=== PATIENT | female | born 1990 | race African-American/Black ===

== ENCOUNTER 2020-05-12 19:29 | Emergency (ER) | payer OTHER ==
[~2020-05-12] VITALS: Ht 170.2 cm; Wt 127.0 kg
[2020-05-12 20:06] LABS: URINE BILIRUBIN NEGATIVE (Negative); URINE BLOOD NEGATIVE (Negative); URINE CLARITY CLEAR; URINE COLOR YELLOW; URINE GLUCOSE-RANDOM* NEGATIVE (Negative); URINE KETONES NEGATIVE (Negative); URINE LEUKOCYTES-REFLEX NEGATIVE (Negative); URINE NITRITE-REFLEX NEGATIVE (Negative); URINE PROTEIN (DIPSTICK) NEGATIVE (Negative); URINE UROBILINOGEN 0.2 E.U./dl (0.2-1.0)
[2020-05-12 20:35] LABS: ABSOLUTE NEUTROPHILS 10.2 thou/uL (1.4-8.2); EOSINOPHILS 1.4 % (0.0-3.0); HEMATOCRIT 37.4 % (37.0-47.0); HEMOGLOBIN 12.2 gm/dL (12.0-15.0); LYMPHOCYTES 14.2 % (24.0-44.0); MCH 26.6 pg (26.0-34.0); MCHC 32.6 g/dL (28.0-37.0); MCV 81.7 fL (80.0-100.0); MONOCYTES 4.9 % (1.0-8.0); PLATELET COUNT 335 thou/uL (150-400); POLYS 78.5 % (36.0-66.0); RBC 4.57 mil/uL (4.20-5.00); RDW 16.2 % (10.5-14.5)
[2020-05-12 20:43] LABS: CALCIUM 8.5 mg/dL (8.5-10.1); CREATININE 0.8 mg/dL (0.6-1.0); POTASSIUM 3.3 mmol/L (3.5-5.1)
[2020-05-12 20:48] LABS: ALBUMIN 3.4 g/dL (3.4-5.0); TOTAL BILIRUBIN 0.2 mg/dL (0.2-1.0); TOTAL PROTEIN 7.6 g/dL (6.4-8.2)
[2020-05-12] MEDS ORDERED: NORCO 5-325 TA1 EAC2 PO (21:44)
[2020-05-12 21:58] VITALS: BP 108/70
== END 2020-05-12 22:03 | disposition home or self-care (01) ==
LOC: ER 19:29
PROVIDERS: Physician Assistant
DX: R10.2 Pelvic and perineal pain (principal); E87.6 Hypokalemia